=== PATIENT | female | born 1990 | race Caucasian/White ===

== ENCOUNTER → 2017-01-15 | Outpatient (CLI) | payer OTHER ==
--- NOTE | 2017-01-15 12:05 | XR ---
EXAMINATION TYPE: XR elbow complete RT DATE OF EXAM: 01/15/2017 COMPARISON: NONE HISTORY: Pain FINDINGS: Three views of the elbow demonstrate no pathologic joint effusion. The osseous structures are intact . There is no acute fracture or dislocation. IMPRESSION: 1. No acute fracture or dislocation. If symptoms persist follow-up study in 7 to 10 days could be ob tained.
== END | disposition home or self-care (01) ==
LOC: RADXRMAIN 11:50
PROVIDERS: ATTEND Emergency Medicine
DX: S50.01XA Contusion of right elbow, initial encounter (principal)

== ENCOUNTER → 2020-05-08 | Outpatient (CLI) | payer OTHER ==
--- NOTE | 2020-05-08 12:30 | US ---
EXAMINATION TYPE: US venous doppler duplex UE RT DATE OF EXAM: 05/08/2020 COMPARISON: NONE CLINICAL HISTORY: M79.601 Pain in right arm,S46.011A. right shoulder pain, history of DVT 2009, patie nt on Xarelto SIDE PERFORMED: right Right Arm: no evidence of DVT. unable to visualize cephalic vein Grayscale, color doppler, spectral doppler imaging performed of the deep veins of the right upper ext remity. There is normal flow, compressibility and vascular waveforms. IMPRESSION: No acute deep or superficial venous thrombosis in the right upper extremity on images kim ed. Unsuccessful visualization of the superficial cephalic vein noted to assess this.
== END | disposition home or self-care (01) ==
LOC: RADUSWWP 11:20
PROVIDERS: ATTEND Emergency Medicine
DX: S46.011A Strain of muscle(s) and tendon(s) of the rotator cuff of right shoulder, initial encounter (principal)

== ENCOUNTER → 2020-05-08 | Outpatient (CLI) | payer OTHER ==
--- NOTE | 2020-05-08 12:41 | XR ---
EXAMINATION TYPE: XR shoulder complete RT DATE OF EXAM: 05/08/2020 CLINICAL HISTORY: Overuse work injury with pain TECHNIQUE: Three views of the right shoulder are obtained. COMPARISON: None. FINDINGS: There is no acute fracture/dislocation evident in the right shoulder. The acromioclavicul ar and glenohumeral joint spaces appear within normal limits. Distal acromion morphology is downslopi ng. The visualized ribs are intact and unremarkable. IMPRESSION: There is no acute fracture or dislocation in the right shoulder.
== END | disposition home or self-care (01) ==
LOC: RADXRMAIN 12:21
PROVIDERS: ATTEND Emergency Medicine
DX: S46.011A Strain of muscle(s) and tendon(s) of the rotator cuff of right shoulder, initial encounter (principal)

== ENCOUNTER → 2020-06-11 | Outpatient (CLI) | payer OTHER ==
--- NOTE | 2020-06-11 10:14 | MR ---
EXAMINATION TYPE: MR shoulder RT wo con DATE OF EXAM: 06/11/2020 COMPARISON: Plain film 05/08/2020 HISTORY: Pain in right shoulder, strain TECHNIQUE: Multiplanar, multisequence imaging of the right shoulder is performed without contrast. FINDINGS: Rotator Cuff: There is abnormal increased signal associated with the rotator cuff tendon. The tendon shows some areas of thickening as well as attenuation, partial thickness tear suspected of the conjoi parul tendon, sagittal #23, 24. Acromioclavicular Joint: Hypertrophic changes present Glenohumeral Joint: Intact Labrum: No evident tear Biceps Tendon: The long head of biceps is in normal location within bicipital groove. Bone marrow signal: No focal abnormal marrow signal is appreciated. Other: Some fluid signal is present along the musculotendinous junction of supraspinatus, fluid signa l in the subacromial subdeltoid bursa, there is a small distal acromial spur IMPRESSION: Correlate for impingement. Partial tear of the rotator cuff. Rotator cuff tendinosis.
== END | disposition home or self-care (01) ==
LOC: RADMRIMAIN 08:10
PROVIDERS: ATTEND Emergency Medicine
DX: M75.111 Incomplete rotator cuff tear or rupture of right shoulder, not specified as traumatic (principal); M25.812 Other specified joint disorders, left shoulder